=== PATIENT | female | born 1985 | race Caucasian/White ===

== ENCOUNTER 2024-08-24 16:33 | Emergency (ER) | payer OTHER ==
[~2024-08-24] VITALS: Ht 165.1 cm; Wt 93.5 kg
[2024-08-24 17:02] VITALS: BP 151/84; PULSE 81; RESP 22; TEMP 97.6; O2SAT 98
[2024-08-24] MEDS: ALBUTEROL SULFATE/IPRATROPIU 3 ML SOL IH ONE (17:11)
[2024-08-24 17:12] VITALS: PULSE 80; RESP 24; O2SAT 98
[2024-08-24] MEDS ORDERED: methylPREDNISolone SS 125 MG/2 ML VIAL ONE (18:41)
[2024-08-24] MEDS ORDERED: WATER STERILE 10 ML MC ONE (18:41)
[2024-08-24] MEDS: methylPREDNISolone SS 125 MG in WATER STERILE 2 ML IM ONE (18:59)
[2024-08-24] MEDS: ALBUTEROL 0.083% 2.5 MG/3 ML NEBU INH ONE (19:06)
[2024-08-24 19:08] VITALS: PULSE 83; RESP 24; O2SAT 98
[2024-08-24 19:37] VITALS: BP 164/87; PULSE 80; RESP 18
[2024-08-24 19:38] VITALS: O2SAT 99
[2024-08-24] MEDS ORDERED: PRED20TA5 PO (20:10)
== END 2024-08-24 20:19 | disposition home or self-care (01) ==
LOC: MED 16:33
DX: J98.01 Acute bronchospasm (principal); I10 Essential (primary) hypertension; Z79.899 Other long term (current) drug therapy
CPT/HCPCS: 71045; 94640; 96372; 99285; J2919; J7613; Q0092